=== PATIENT | female | born 1970 | race Caucasian/White ===

== ENCOUNTER → 2018-04-14 15:56 | Outpatient (CLI) | payer OTHER, SELFPAY ==
--- NOTE | 2018-04-14 15:58 | DI.CT.S_ITS ---
PROCEDURE: CT SINUS SCREEN WO CON INDICATIONS: recurrent sinusitus, mucosal thickening or other changes to left maxillary sinus TECHNIQUE: Noncontrast 3.0 mm axial images acquired from the frontal sinuses to the mid-sella, with coronal and sagittal reformats. For radiation dose reduction, the following was used: automated exposure control, adjustment of mA and/or kV according to patient size. COMPARISON: None. FINDINGS: Image quality: Excellent. Mild mucosal thickening noted in the floor of the maxillary sinuses bilaterally. No air-fluid levels are identified. The osteomeatal units are patent bilaterally. No osseous thickening, osseous remodeling or osseous erosive changes. Nasal septum is deviated to the left. A small bone spur is noted along the left margin of the nasal septum. No silver bullosa or paradoxical turbinates. Chronic-appearing left lamina papyracea fracture noted. Extraconal left orbital fat herniates through the left lamina the major fracture site. IMPRESSION: Mild bilateral maxillary sinus mucosal thickening. No air-fluid levels. Dictated by: Fatou Little MD, PhD on 04/14/2018 at 16:17 Approved by: Fatou Little MD, PhD on 04/14/2018 at 16:26
== END ==
PROVIDERS: Visit Provider Physician Assistant
DX: J32.0 Chronic maxillary sinusitis (principal); J34.2 Deviated nasal septum
CPT/HCPCS: 70486

== ENCOUNTER 2021-07-24 13:27 | Emergency (ER) | payer OTHER, SELFPAY ==
[2021-07-24] VITALS (8 sets, daily range): BP systolic 115–150; BP diastolic 57–86; PULSE 56–71; RESP 14–27; TEMP 36.4; O2SAT 96–100
--- NOTE | 2021-07-24 13:41 | DI.RAD.S_ITS ---
PROCEDURE: XR CHEST 1V INDICATIONS: chest pain TECHNIQUE: One view of the chest was acquired. COMPARISON: None. FINDINGS: Surgical changes and devices: None. Lungs and pleura: Lungs are clear. No pleural effusions or pneumothorax. Mediastinum: Mediastinal contours appear normal. Heart size is normal. Bones and chest wall: No suspicious bony lesions. Overlying soft tissues appear unremarkable. IMPRESSION: No acute pulmonary process. Dictated by: Francy Tripp M.D. on 07/24/2021 at 14:21 Approved by: Francy Tripp M.D. on 07/24/2021 at 14:22
[2021-07-24 13:56] LABS: Add Manual Diff / Slide Review NO; Basophils Absolute Auto 100 /uL (0-100); Basophils Percent Auto 0.8 % (0-2); Eosinophils Absolute Auto 300 /uL (0-450); Eosinophils Percent Auto 3.2 % (2-4); Hemoglobin 13.9 g/dL (12.0-16.0); Lymphocytes Absolute Auto 2500 /uL (1100-4500); Lymphocytes Percent Auto 30.3 % (25-40); Mean Corpuscular Hemoglobin 30.7 PG (26-34); Mean Corpuscular Volume 90.4 fL (80-100); Monocytes Absolute Auto 700 /uL (0-900); Monocytes Percent Auto 8.7 % (3-14); Neutrophils Absolute Auto 4700 /uL (1500-7000); Platelet Count 223 X10^3/uL (150-400); Red Blood Cell Count 4.54 X10^6/uL (4.0-5.2); Red Cell Distribution Width 13.8 % (11.6-14.8); White Blood Cell Count 8.2 X10^3/uL (4.5-11.0)
[2021-07-24 14:08] LABS: Alanine Aminotransferase 25 IU/L (<35); Albumin 4.5 g/dL (3.5-5.0); Albumin Globulin Ratio 1.8 (1.0-2.8); Alkaline Phosphatase 81 U/L (38-126); Aspartate Aminotransferase 29 IU/L (14-36); BUN Creatinine Ratio 21.3 (6-22); Bilirubin Total 0.6 mg/dL (0.2-1.3); Blood Urea Nitrogen 16 mg/dL (7-17); Carbon Dioxide 27 mmol/L (22-32); Chloride 101 mmol/L (98-107); Creatine Kinase 88 U/L (30-135); Estimated Glomerular Filt Rate > 60 mL/min (>60); Globulin 2.5 g/dL (1.7-4.1); Glucose 91 mg/dL (70-100); HEMOLYSIS 16 (0-50); Lipase 122 U/L (23-300); Magnesium 1.9 mg/dL (1.6-2.3); Potassium 3.8 mmol/L (3.4-5.1); Sodium 134 mmol/L (137-145)
[2021-07-24 14:18] LABS: Troponin I < 0.012 ng/mL (0.01-0.034)
--- NOTE | 2021-07-24 15:48 | ED_ITS ---
HPI - Chest Pain General Chief Complaint: Chest Pain Stated Complaint: Chest Pain Time Seen by Provider: 07/24/21 15:37 Source: patient Mode of arrival: Ambulatory Limitations: no limitations History of Present Illness HPI narrative: 51-year-old female who is here for evaluation of left-sided chest discomfort. She states that for the past 24-48 hours she has had intermittent left-sided chest discomfort. It is not worse with palpation or movement. At 1 point she thought that it was involving her left shoulder. She is currently not having any symptoms. Has never had this before. No prior cardiac issues. Does not take any medications. Fevers. She is very active and does quite a bit of running and also biking and has perform these activities since the onset of her discomfort and states that it has not caused her to stop any of her desired activities. Related Data Allergies Allergy/AdvReac Type Severity Reaction Status Date / Time No Known Drug Allergies Allergy Verified 07/24/21 13:39 Review of Systems Constitutional Constitutional: Denies fever(s) Cardiovascular Cardiovascular: Reports as per HPI and Reports system reviewed and no additional complaints, except as documented Respiratory Respiratory: Reports system reviewed and no additional complaints, except as documented Gastrointestinal Gastrointestinal: Reports system reviewed and no additional complaints, except as documented Musculoskeletal Musculoskeletal: Reports system reviewed and no additional complaints, except as documented Integumentary/Breasts Skin/Breast: Reports system reviewed and no additional complaints, except as documented Neurologic Neurologic: Reports system reviewed and no additional complaints, except as documented Hematologic/Lymphatic On Anticoagulants: No Patient History Medical History Lumbar radiculopathy, acute Radiculopathy of leg Social History Smoking Status: Never smoker Smoking Status: Never smoker alcohol intake frequency: holidays/special occasions only Substance Use Type: does not use Exam Initial Vital Signs Initial Vital Signs: Vital Signs Temperature 97.6 F 07/24/21 13:35 Pulse Rate 71 07/24/21 13:35 Respiratory Rate 14 07/24/21 13:35 Blood Pressure 150/86 H 07/24/21 13:35 Pulse Oximetry 100 07/24/21 13:35 HENMT Head: normal to inspection and normocephalic Resp Effort & Inspection: normal respiratory effort Auscultation: clear to auscultation bilaterally Cardio Rate: regular rate Rhythm: regular rhythm GI Inspection: normal to inspection Palpation: soft and No tender Skin General: no rashes or lesions noted Neuro General: patient alert, patient awake and moves all extremities Extrem General: normal to inspection and capillary refill normal Scores HEART Score Heart Score history: Slightly Suspicious Heart Score EKG: Normal Heart Score Age: 45-64 years old Heart Score risk factors: No known risk factors Heart Score troponin: < or = to normal limit Heart Score Total: 1 Course Orders Ordered: ED Orders 07/24/21 13:41 XR chest 1V Stat EKG-12 Lead Stat 07/24/21 13:50 Complete Blood Count AUTO DIFF Stat Comprehensive Metabolic Panel Stat Lipase Stat Magnesium Stat Troponin & CK Cardiac Panel Stat 07/24/21 16:04 Troponin I Stat Vital Signs Vital signs: Vital Signs - 8 hr 07/24/21 13:35 07/24/21 15:23 07/24/21 15:24 Temperature 97.6 F Pulse Rate 71 60 60 Respiratory Rate 14 21 20 Blood Pressure 150/86 H 128/76 Pulse Oximetry 100 96 98 07/24/21 15:30 07/24/21 16:00 07/24/21 16:01 Temperature Pulse Rate 60 71 57 L Respiratory Rate 18 27 H 21 Blood Pressure 122/71 122/57 L Pulse Oximetry 100 99 100 07/24/21 16:30 07/24/21 17:22 Temperature Pulse Rate 56 L 67 Respiratory Rate 19 Blood Pressure 115/72 119/63 Pulse Oximetry 100 100 MDM - Chest Pain Lab Data Attestation: I reviewed the patient's lab results. Result diagrams: 07/24/21 13:50 07/24/21 13:50 Labs: Lab Results 07/24/21 07/24/21 07/24/21 Range/Units 13:50 13:50 16:04 WBC 8.2 (4.5-11.0) X10^3/uL RBC 4.54 (4.0-5.2) X10^6/uL Hgb 13.9 (12.0-16.0) g/dL Hct 41.0 (36-46) % MCV 90.4 (80-100) fL MCH 30.7 (26-34) PG MCHC 34.0 (30-36) % RDW 13.8 (11.6-14.8) % Plt Count 223 (150-400) X10^3/uL Neut % (Auto) 57.0 (50-75) % Lymph % (Auto) 30.3 (25-40) % Holmes % (Auto) 8.7 (3-14) % Eos % (Auto) 3.2 (2-4) % Baso % (Auto) 0.8 (0-2) % Neut # (Auto) 4700 (4757-2201) /uL Lymph # (Auto) 2500 (4278-5731) /uL Holmes # (Auto) 700 (0-900) /uL Eos # (Auto) 300 (0-450) /uL Baso # (Auto) 100 (0-100) /uL Sodium 134 L (137-145) mmol/L Potassium 3.8 (3.4-5.1) mmol/L Chloride 101 (98-107) mmol/L Carbon Dioxide 27 (22-32) mmol/L BUN 16 (7-17) mg/dL Creatinine 0.75 (0.52-1.04) mg/dL Estimated GFR > 60 (>60) mL/min BUN/Creatinine Ratio 21.3 (6-22) Glucose 91 (70-100) mg/dL Calcium 9.0 (8.4-10.2) mg/dL Magnesium 1.9 (1.6-2.3) mg/dL Total Bilirubin 0.6 (0.2-1.3) mg/dL AST 29 (14-36) IU/L ALT 25 (<35) IU/L Alkaline Phosphatase 81 (38-126) U/L Total Creatine Kinase 88 (30-135) U/L CK-MB (CK-2) TNP CK-MB (CK-2) Rel Index TNP Troponin I < 0.012 < 0.012 (0.01-0.034) ng/mL Total Protein 7.0 (6.3-8.2) g/dL Albumin 4.5 (3.5-5.0) g/dL Globulin 2.5 (1.7-4.1) g/dL Albumin/Globulin Ratio 1.8 (1.0-2.8) Lipase 122 (23-300) U/L Imaging Data Chest x-ray: Radiologist's Impression: [address] [address] XRay Report Signed Patient: Kimberly Winston MR#: [id number] : 1970 Acct:[id number] Age/Sex: 51 / F Date of Service: 07/24/21 Loc: ED Accession Number: [id number] ?? Procedure: XR chest 1V Ordering Provider: Kevin Uribe D.O. PROCEDURE:? XR CHEST 1V ? INDICATIONS:? chest pain ? TECHNIQUE:? One view of the chest was acquired.? ? COMPARISON:? None. ? FINDINGS:? ? Surgical changes and devices:? None.? ? Lungs and pleura:? Lungs are clear.? No pleural effusions or pneumothorax.? ? Mediastinum:? Mediastinal contours appear normal.? Heart size is normal.? ? Bones and chest wall:? No suspicious bony lesions.? Overlying soft tissues a ppear unremarkable.? ? IMPRESSION:? No acute pulmonary process. ? ? Dictated by: Francy Tripp M.D. on 07/24/2021 at 14:21 ? ? Approved by: Francy Tripp M.D. on 07/24/2021 at 14:22?? ECG Data Attestation: I personally reviewed and interpreted this ECG as follows: Interpretation: Sinus rhythm Ventricular rate is 68 Normal axis Normal QRS Normal QTC No ST T wave changes MDM Narrative Medical decision making narrative: Currently asymptomatic. Troponins negative x2. Low risk heart score. Chest x- ray is unremarkable. I did discuss the need for follow-up with primary doctor to discuss further risk stratification procedures to include a stress test. Will hold on any changes or starting of medications currently. She was given return precautions and follow-up instructions. She expressed understanding and agreement. Discharge Plan Departure Patient Disposition: Home Clinical Impression: Atypical chest pain Instructions: DI for Atypical Chest Pain Activity Restrictions/Additional Instructions: Your workup here in the emergency department is very reassuring. I do recommend you contact your primary doctor for a follow-up to discuss the indications for a stress test. You currently in no restrictions on any activities however please return to the emergency department for any new or worsening symptoms. Referrals: Miscellaneous,MD Joey [Primary Care Provider] -
[2021-07-24 16:45] LABS: Troponin I < 0.012 ng/mL (0.01-0.034)
== END 2021-07-24 17:22 | disposition home or self-care (01) ==
PROVIDERS: Emergency Provider Emergency Medicine
DX: R07.89 Other chest pain (principal)
CPT/HCPCS: 36415; 71045; 80053; 82550; 83690; 83735; 84484; 85025; 93005; 99283